=== PATIENT | female | born 1960 | race Caucasian/White ===

== ENCOUNTER 2016-11-14 16:26 | Emergency (ER) | payer BC ==
[~2016-11-14] VITALS: Ht 167.6 cm; Wt 72.1 kg
[~2016-11-14 16:26] MED LIST: ALPR0.25 PO; AZIT500I PO; CALC500T6 PO; FISH1000 PO; L-ME15TA5 PO; L-ME1TAB6 PO; LISI10TA PO; PROZ40CA PO; TAB-TAB PO; VIT250TA PO; VITA10004 PO; super b complex PO
[2016-11-14 16:34] VITALS: BP 174/108; PULSE 76; RESP 16; TEMP 98.2; O2SAT 98
[2016-11-14] MEDS ORDERED: FLUO40CA PO (17:02)
[2016-11-14] MEDS ORDERED: OMEP40CA2 PO (17:02)
[2016-11-14] MEDS ORDERED: ALPR.5 PO (17:02)
[2016-11-14] MEDS ORDERED: TRAM50TA PO (17:02)
[2016-11-14] MEDS ORDERED: METO25TA3 PO (17:02)
[2016-11-14] MEDS ORDERED: BACL20TA PO (17:02)
--- NOTE | 2016-11-14 17:08 | PD ---
HPI Chief Complaint: Back/ Neck Pain or Injury Time Seen by Provider: 17:07 Travel History International Travel<30 days: No Contact w/Intl Traveler<30days: No Traveled to known affect area: No History of Present Illness HPI 56-year-old female with PMH of chronic back pain presents to the ED for evaluation of 5 day history of muscle spasm of the mid back. Patient denies numbness, tingling, weakness, limitations to range of motion or loss of strength of the extremities. She states her pain is very similar to her previous pain. Patient states that she underwent a kyphoplasty on 11/09. She states the procedure was performed by the interventional radiologist. She states she was discharged from the procedure without pain medications. She states that she has been taking baclofen and Tylenol with no improvement of her pains. PFSH Past Medical History Anxiety: Yes Depression: Yes Diminished Hearing: No Hypertension: Yes Tetanus Vaccination: Unknown Influenza Vaccination: Yes Past Surgical History Other Surgery: Yes (KYPHOPLASTY 11/11) Social History Alcohol Use: Yes (OCC) Tobacco Use: No (FORMER) Substance Use: No Allergies-Medications (Allergen,Severity, Reaction): Coded Allergies: Codeine (Verified Allergy, Severe, severe itching, 11/14/16) Reported Meds & Prescriptions Reported Meds & Active Scripts Active Reported Xanax (Alprazolam) 0.5 Mg Tab 0.5 Mg PO DAILY PRN Tramadol (Tramadol HCl) 50 Mg Tab 50 Mg PO TID PRN Baclofen 20 Mg Tab 20 Mg PO TID Metoprolol Tartrate 25 Mg Tab 25 Mg PO BID Omeprazole 40 Mg Cap 40 Mg PO DAILY Fluoxetine (Fluoxetine HCl) 40 Mg Cap 80 Cap PO DAILY Review of Systems Except as stated in HPI: all other systems reviewed are Neg Physical Exam Narrative GENERAL: Well-nourished, well-developed emotional white female in no acute distress. SKIN: Warm and dry. HEAD: Normocephalic. EYES: No scleral icterus. No injection or drainage. NECK: Supple, trachea midline. No JVD or lymphadenopathy. CARDIOVASCULAR: Regular rate and rhythm without murmurs, gallops, or rubs. RESPIRATORY: Breath sounds equal bilaterally. No accessory muscle use. GASTROINTESTINAL: Abdomen soft, non-tender, nondistended. MUSCULOSKELETAL: No cyanosis, or edema. 5/5 strength in dorsiflexion, plantar flexion, knee flexion, hip flexion bilaterally. BACK: No obvious deformity. No CVA tenderness. No midline tenderness. Mild tenderness to palpation of the paraspinal musculature in the mid back area. Data Data Last Documented VS Vital Signs Date Time Temp Pulse Resp B/P Pulse Ox O2 Delivery O2 Flow Rate FiO2 11/14/16 18:12 70 16 159/91 95 11/14/16 16:34 98.2 Orders Morphine Inj (Morphine Inj) (11/14/16 17:30) Orphenadrine Inj (Norflex Inj) (11/14/16 17:45) [facility] Medical Decision Making Medical Screen Exam Complete: Yes Emergency Medical Condition: Yes Differential Diagnosis Muscle spasm versus acute on chronic back pain versus postoperative complications versus other Narrative Course 56-year-old female with PMH of chronic back pain presents to the ED for evaluation of 5 day history of muscle spasm of the mid back. Patient denies numbness, tingling, weakness, limitations to range of motion or loss of strength of the extremities. She states her pain is very similar to her previous pain. Patient states that she underwent a kyphoplasty on 11/09. She states the procedure was performed by the interventional radiologist. She states she was discharged from the procedure without pain medications. She states that she has been taking baclofen and Tylenol with no improvement of her pains. Vitals reviewed. Physical exam reveals a tearful white female in no acute distress. There is no midline tenderness to palpation. There is no palpable spasm of the musculature of the mid back. The deficits of strength in the lower extremities. No focal neural deficits. Suspect this pain is related to her recent procedure. She has not been taking her medications as scheduled. She is administered IM Norflex and morphine. On recheck she reports improvement of her symptoms. She is instructed to take the medications every 4- 6 hours as prescribed, return to normal, gentle activities as tolerated, follow up with the physician who referred her for the kyphoplasty. She indicated understanding of instructions and was amenable to plan of care. She is stable and discharged home. Diagnosis Primary Impression: Mid back pain Additional Impression: Spasm of back muscles Referrals: Neurologist Primary Care Physician Patient Instructions: General Instructions, Muscle Spasm (ED) Departure Forms: Tests/Procedures, Work Release Special Instructions: No heavy lifting, no long periods of standing, no long periods of sitting until cleared by the neurologist. Additional Instructions: Mixture of rest and activity is best for back pain. Return to normal, gentle activities as tolerated. Take tramadol and Robaxin every 4-6 hours as they're prescribed. Do not skip a dose. Follow-up with the provider who referred you for kyphoplasty this week. Return to the ED for any urgent or emergent medical condition. Disposition: 01 DISCHARGE HOME Condition: Stable Rebeca Rivera Nov 14, 2016 17:07
[2016-11-14] MEDS ORDERED: MORPHINE SULFATE 8 MG/ML INJ IM ONE (17:30)
[2016-11-14] MEDS ORDERED: METHOCARBAMOL 1000 MG/10 ML VIAL IM ONE (17:30)
[2016-11-14] MEDS ORDERED: ORPHENADRINE INJ 60 MG/2 ML AMP IM ONE (17:45)
[2016-11-14 18:12] VITALS: BP 159/91
== END 2016-11-14 18:15 | disposition home or self-care (01) ==
LOC: PHED 16:26 → PHEFT 18:15
DX: M62.830 Muscle spasm of back (principal); M54.9 Dorsalgia, unspecified; I10 Essential (primary) hypertension
CPT/HCPCS: 96372; 99283; J2270; J2360